=== PATIENT | male | born 1975 | race Caucasian/White ===

== ENCOUNTER 2017-02-13 14:59 | Emergency (ER) | payer OTHER ==
[2017-02-13 15:16] VITALS: BP 139/75; PULSE 84; TEMP 98.5; BMI 27.8
--- NOTE | 2017-02-13 15:51 | PDOC ---
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 There is a range room/ storage room that is being remodeled with extensive re- construction. There is a need to guard the room while outside contractors are present. During this time of construction, ranging from 6-3 months, patient used no respiratory or eye protection. Cleaning company today arrived who stated debris appeared to be consistent with an aspestos. Asbestos Was not confirmed by laboratory analysis. Patient denies any respiratory complaints, denies any skin changes, denies any eye burning or any runny nose. Is asymptomatic and here for documentation of potential exposure 02/13/17 18:56 Timing: just prior to arrival Severity: mild Past History - Travel Traveled outside of the country in the last 30 days: No Close contact w/someone who was outside of country & ill: No - Past Medical History Allergies/Adverse Reactions: Allergies terbinafine HCl [From Lamisil] Allergy (Verified 02/13/17 15:15) Home Medications: Ambulatory Orders NK [No Known Home Medication] 02/22/16 General: Yes: no pertinent history Surgical History: Yes: No Surgical History - Family History Significant Family History: Yes: no pertinent family hx - Immunization History Immunizations Up to Date: Yes - Social History Smoking Status: Never smoked Number of Ciarettes Per Day: 0 Cigars Per Day: 0 Review of Systems - Review of Systems Able to Perform ROS?: Yes Is the patient limited Mohawk proficient: Yes Constitutional: Yes: See HPI. No: Symptoms Reported HEENTM: No: Symptoms Reported Respiratory: Yes: See HPI. No: Symptoms reported Cardiac (ROS): No: Symptoms Reported Musculoskeletal: No: Symptoms Reported Integumentary: No: Symptoms Reported Neurological: No: Symptoms reported All Other Systems: Reviewed and Negative *Physical Exam - Vital Signs Last Vital Signs Temp Pulse Resp BP Pulse Ox 98.5 F 84 17 139/75 100 02/13/17 15:13 02/13/17 15:13 02/13/17 15:13 02/13/17 15:13 02/13/17 15:13 - Physical Exam General Appearance: Yes: Nourished, Appropriately Dressed. No: Apparent Distress HEENT: positive: DOMONIQUE, Normal ENT Inspection, TMs Normal, Pharynx Normal Neck: positive: Supple. 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 See Occupational Health for followup - Post Discharge Activity Work/School Note: Back to Work
== END 2017-02-13 16:05 | disposition home or self-care (01) ==
LOC: SUPCPDRO 14:59 → JERFT 14:59
DX: Z77.090 Contact with and (suspected) exposure to asbestos (principal); X58.XXXA Exposure to other specified factors, initial encounter; Y93.89 Activity, other specified; Y92.89 Other specified places as the place of occurrence of the external cause; Y99.0 Civilian activity done for income or pay
CPT/HCPCS: 99281-25

== ENCOUNTER 2022-02-14 09:51 | Emergency (ER) | payer OTHER ==
[2022-02-14 10:01] VITALS: BP 148/91; PULSE 80; TEMP 98.4; BMI 27.8
== END 2022-02-14 11:15 | disposition home or self-care (01) ==
LOC: FER 09:51
DX: M66.28 Spontaneous rupture of extensor tendons, other site (principal)
CPT/HCPCS: 73140-TC-LT-FY; 99283-25